=== PATIENT | male | born 1945 | race American Indian/Alaskan Native ===

== ENCOUNTER 2016-04-03 16:21 | Emergency (ER) | payer MEDICARE, MEDICAID ==
[2016-04-03 17:15] VITALS: BP 126/78
--- NOTE | 2016-04-03 17:20 | Emergency Department Report ---
Chief Complaint: Abdominal Pain Stated Complaint: STOMACH PAINS Time Seen by Provider: 04/03/16 17:19 - HPI History of Present Illness: 70 y/o male complain of abdominal since this am.pt state he vomit x 1 today - ROS Review of Systems: per HPI - Exam Vital Signs: Vital Signs 04/03/16 17:10 Temperature 97.7 F Pulse Rate 77 Respiratory 20 Rate Blood Pressure 126/78 O2 Sat by Pulse 97 Oximetry Physical Exam: GENERAL: The patient is well-developed and well-nourished. Patient is in NAD. HENT: Normocephalic. Atraumatic. Patient has moist mucous membranes. Throat: No erythema, swelling or exudates. EYES: Extraocular motions are intact, PERRL NECK: Supple. No meningitic signs are noted. There is no adenopathy noted. CHEST/LUNGS: Clear to auscultation bilaterally. No wheezing, rales or rhonchi noted. There is no respiratory distress noted. HEART/CARDIOVASCULAR: Regular rate and rhythm. Normal S1 S2. No murmurs, rubs , clicks, or gallops. ABDOMEN: Abdomen is soft, nontender.. Bowel sounds normoactive. There is no abdominal distention. Negative rebound tenderness. : Deferred. SKIN: There is no rash. There is no edema. There is no diaphoresis. NEURO: The patient is A&Ox3. The patient has no focal neurologic deficits. MUSCULOSKELETAL: There is no tenderness or deformity. There is no limitation range of motion. PSYCH: Pt has appropriate mood and affect. MSE screening note: Focused history and physical exam performed. Due to findings the following was ordered: ED Disposition for MSE Condition: Stable
[2016-04-03 17:38] LABS: Basophils % (Auto) 0.5 % (0.0-1.8); Eosinophils % (Auto) 0.5 % (0.0-4.3); Hematocrit 44.4 % (35.5-45.6); Mean Corpuscular HGB Conc 34 % (32-34); Mean Corpuscular Hemoglobin 31 pg (28-32); Mean Corpuscular Volume 93 fl (84-94); Platelet Count 192 K/mm3 (140-440); Red Cell Distribution Width 14.9 % (13.2-15.2); White Blood Count 6.6 K/mm3 (4.5-11.0)
[2016-04-03 17:58] LABS: BUN/Creatinine Ratio 14.28; Blood Urea Nitrogen 10 mg/dL (9-20); Calcium 9.6 mg/dL (8.4-10.2); Carbon Dioxide 19 mmol/L (22-30); Chloride 99.5 mmol/L (98-107); Glucose 119 mg/dL (75-100); Potassium 3.8 mmol/L (3.6-5.0); Sodium 135 mmol/L (137-145)
[2016-04-03 18:05] LABS: Anion Gap 20 mmol/L
[2016-04-03 18:14] LABS: Bilirubin,Urine NEG (Negative); Blood,Urine NEG (Negative); Ketones,Urine NEG (Negative); Leukocyte Esterase,Urine NEG (Negative); Mucus,Urine FEW /HPF; Nitrite,Urine NEG (Negative); Protein,Urine <15 mg/dL mg/dL (Negative); RBC,Urine < 1.0 /HPF (0.0-6.0); Urobilinogen,Urine < 2.0 mg/dL (<2.0)
--- NOTE | 2016-04-04 02:34 | Emergency Department Report ---
HPI - General Chief Complaint: Abdominal Pain Time Seen by Provider: 04/04/16 02:19 - HPI HPI: Room 3 The patient is a 70-year-old male presenting with chief complaint of abdominal pain. The patient states he was awakened this morning at 06:30 with suprapubic abdominal pain. Patient states the pain was constant and "hard." The patient states his daughter gave him an oxycodone at 20:00 and the pain is decreased from a 10/10 to currently a 2/10. The patient admits to one episode of nausea and vomiting and a small amount of diarrhea. Patient denies fever or hematuria. The patient states he has had intermittent dysuria for 1 month but has not sought evaluation Location: Suprapubic region Duration: Constant since 06:30 Quality: "Hard" Severity: 2/10 Modifying factors: [see above] Context: [see above] Mode of transportation: [not driving] ED Past Medical Hx - Past Medical History Hx Hypertension: Yes Additional medical history: leg pain, pacemaker, blind right eye "prostate problems" - Surgical History Hx Pacemaker: Yes Additional Surgical History: pacemaker, LLL surgery with pins - Family History Family history: no significant - Social History Smoking Status: Current Every Day Smoker (1/2 pack per day) Substance Use Type: Alcohol (stopped drinking alcohol 1 month ago) - Medications Home Medications: Home Medications Medication Instructions Recorded Confirmed Last Taken Type Aspirin [Aspirin BABY CHEW TAB] 81 mg PO QDAY 06/05/14 06/05/14 06/05/14 History Dorzolamide HCl/Timolol Maleat BID 06/05/14 06/05/14 06/05/14 History [Dorzolamide-Timolol Eye Drops] Folic Acid [Folvite] 1 mg PO QDAY 06/05/14 06/05/14 Unknown History Latanoprost 0.005% [Xalatan 0.005%] 06/05/14 06/05/14 Unknown History Tamsulosin [Flomax] 0.4 mg PO DAILY 06/05/14 06/05/14 06/04/14 History Thiamine [Vitamin B-1] 100 mg PO QDAY 06/05/14 06/05/14 Unknown History tiZANidine [Zanaflex] 4 mg pe PO PRN 06/05/14 06/05/14 Unknown History HYDROcodone/APAP 5-325 [[place] 1 each PO Q6HR PRN #20 tablet 06/06/14 Unknown Rx 5/325] Ibuprofen [Motrin 800 MG tab] 800 mg PO Q8H PRN #30 tablet 06/06/14 Unknown Rx HYDROcodone/APAP 5-325 [[place] 1 - 2 each PO Q6HR PRN #14 tablet 04/04/16 Unknown Rx 5/325] Ibuprofen [Motrin 800 MG tab] 800 mg PO Q8HR PRN #20 tablet 04/04/16 Unknown Rx Sulfamethoxazole/Trimethoprim 1 each PO BID #14 tablet 04/04/16 Unknown Rx [Bactrim DS TAB] ED Review of Systems ROS: Stated complaint: STOMACH PAINS Other details as noted in HPI Comment: All other systems reviewed and negative Constitutional: denies: chills, fever Eyes: denies: eye pain, eye discharge, vision change ENT: denies: ear pain, throat pain Respiratory: denies: cough, shortness of breath, wheezing Cardiovascular: denies: chest pain, palpitations Endocrine: no symptoms reported Gastrointestinal: abdominal pain, nausea, vomiting, diarrhea Genitourinary: dysuria. denies: hematuria Musculoskeletal: denies: back pain, joint swelling, arthralgia Skin: denies: rash, lesions Neurological: denies: headache, weakness, paresthesias Psychiatric: denies: anxiety, depression Hematological/Lymphatic: denies: easy bleeding, easy bruising Physical Exam - Physical Exam Vital Signs: Vital Signs 04/03/16 04/04/16 17:10 01:46 Temperature 97.7 F Pulse Rate 77 Respiratory 20 18 Rate Blood Pressure 126/78 O2 Sat by Pulse 97 99 Oximetry Physical Exam: GENERAL: The patient is well-developed well-nourished male lying on stretcher not appearing to be in acute distress. [] HEENT: Normocephalic. Atraumatic. Extraocular motions are intact. Patient has moist mucous membranes. NECK: Supple. Trachea midline CHEST/LUNGS: Clear to auscultation. There is no respiratory distress noted. HEART/CARDIOVASCULAR: Regular. There is no tachycardia. There is no gallop rub or murmur. ABDOMEN: Abdomen is soft, with tenderness to palpation of the suprapubic region . patient has normal bowel sounds. There is no abdominal distention. SKIN: There is no rash. There is no edema. There is no diaphoresis. NEURO: The patient is awake, alert, and oriented. The patient is cooperative. The patient has normal speech MUSCULOSKELETAL: There is no evidence of acute injury. ED Course Vital Signs 04/03/16 04/04/16 17:10 01:46 Temperature 97.7 F Pulse Rate 77 Respiratory 20 18 Rate Blood Pressure 126/78 O2 Sat by Pulse 97 99 Oximetry ED Medical Decision Making - Lab Data Result diagrams: 04/03/16 17:26 04/03/16 17:26 Laboratory Tests 04/03/16 04/03/16 04/03/16 17:26 17:26 18:00 WBC 6.6 RBC 4.80 Hgb 15.0 Hct 44.4 MCV 93 MCH 31 MCHC 34 RDW 14.9 Plt Count 192 Lymph % (Auto) 38.1 H Sullivan % (Auto) 6.3 Eos % (Auto) 0.5 Baso % (Auto) 0.5 Lymph # 2.5 Sullivan # 0.4 Eos # 0.0 Baso # 0.0 Seg Neutrophils % 54.6 Seg Neutrophils # 3.6 Sodium 135 L Potassium 3.8 Chloride 99.5 Carbon Dioxide 19 L Anion Gap 20 BUN 10 Creatinine 0.7 L Estimated GFR > 60 BUN/Creatinine Ratio 14.28 Glucose 119 H Calcium 9.6 Urine Color Yellow Urine Turbidity Clear Urine pH 6.0 Ur Specific [place] 1.019 Urine Protein <15 mg/dl Urine Glucose (UA) Neg Urine Ketones Neg Urine Blood Neg Urine Nitrite Neg Urine Bilirubin Neg Urine Urobilinogen < 2.0 Ur Leukocyte Esterase Neg Urine WBC (Auto) 1.0 Urine RBC (Auto) < 1.0 U Epithel Cells (Auto) < 1.0 Urine Mucus Few - Radiology Data Radiology results: report reviewed (CT abdomen and pelvis), image reviewed (CT abdomen and pelvis) CT abdomen and pelvis (read by radiologist)-there is no evidence of intestinal or urinary tract obstruction. No ileus or enteritis. There is significant prominence of the prostate gland with some calcifications within the prostate gland. There is also thickening of the urinary bladder wall cholecystitis is suspected. - Differential Diagnosis UTI, diverticulitis, bladder mass, renal colic Critical care attestation.: If time is entered above; I have spent that time in minutes in the direct care of this critically ill patient, excluding procedure time. ED Disposition Clinical Impression: Acute abdominal pain, Dysuria Disposition: DISCHARGED TO HOME OR SELFCARE Is pt being admited?: No Does the pt Need Aspirin: No Condition: Stable Instructions: Prostate Cancer (GEN), Prostatitis (ED) Additional Instructions: Return to the emergency department immediately should you develop worsening symptoms, fever, inability to tolerate food or liquid or any other concerns. Prescriptions: HYDROcodone/APAP 5-325 [[place] 5/325] 1 - 2 each PO Q6HR PRN #14 tablet PRN Reason: Pain Ibuprofen [Motrin 800 MG tab] 800 mg PO Q8HR PRN #20 tablet PRN Reason: Pain Sulfamethoxazole/Trimethoprim [Bactrim DS TAB] 1 each PO BID #14 tablet Referrals: PRIMARY CAREMD [Primary Care Provider] - 3-5 Days KARRIE BYNUM MD [Staff Physician] - 3-5 Days (Dr. Bynum is a urologist. It is very important that you follow up with him for further evaluation) Time of Disposition: 04:11
[2016-04-04] MEDS ORDERED: NACL ONE (02:47)
--- NOTE | 2016-04-04 03:56 | Cat Scan Report ---
FINAL REPORT PROCEDURE: CT ABDOMEN PELVIS W CON TECHNIQUE: Computerized axial tomography of the abdomen and pelvis was performed after the IV injection of iodinated nonionic contrast. HISTORY: lower abdominal, suprapubic pain COMPARISON: No prior studies are available for comparison. FINDINGS: Visualized lower thorax: No significant abnormality. Liver: The liver size is normal. There are multiple areas hypoattenuation identified in the liver the appear to represent cysts. The largest measures 2.5 centimeters.. Spleen: Normal size and attenuation. Gallbladder and biliary system: The gallbladder lumen is normal. No stones are identified. Minimal prominence of the central biliary ductal system is identified on this study. Further evaluation with ultrasound and HIDA scan may be appropriate.. Pancreas: Normal. Adrenals: Normal. Kidneys: Both kidneys have a normal size. No hydronephrosis. No renal stones or masses. GI tract: The stomach is normal. The small bowel has a normal caliber. No obstruction, ileus or enteritis. The cecum, appendix and colon are normal. Lymph nodes and mesentery: Normal. Vasculature: Moderate atherosclerosis of the aorta and all branching vessels. There is an inferior vena cava filter identified.. Bladder: There is some bladder wall thickening. Cystitis is possible.. Reproductive organs: The prostate gland is enlarged. There are some calcifications within the prostate gland. Peritoneum: No free fluid. Musculoskeletal structures: No significant abnormality. Other: None. IMPRESSION: There is no evidence of intestinal or urinary tract obstruction. No ileus or enteritis. There is slight dilatation of the central biliary ductal system. The gallbladder lumen shows no evidence of stone formation. Further evaluation of the biliary system with ultrasound and HIDA scan may be appropriate. There is significant prominence of the prostate gland with some calcifications within the prostate gland. There is also thickening of the urinary bladder wall, cystitis is suspected.
== END 2016-04-04 04:29 | disposition home or self-care (01) ==
LOC: ED 16:21
DX: R10.30 Lower abdominal pain, unspecified (principal); R30.0 Dysuria; I10 Essential (primary) hypertension; F17.200 Nicotine dependence, unspecified, uncomplicated
CPT/HCPCS: 36415; 74177; 80048; 81001; 85025; 87086; 99284; Q9967

== ENCOUNTER 2016-04-17 22:56 | Emergency (ER) | payer MEDICARE ==
--- NOTE | 2016-04-17 23:25 | Emergency Department Report ---
- General Chief complaint: Weakness Stated complaint: CHEST PAIN Time Seen by Provider: 04/17/16 23:17 Source: patient, EMS Mode of arrival: Stretcher Limitations: Physical Limitation - History of Present Illness Initial comments: This 70-year-old male with history of hypertension, hyperlipidemia with permanent pacemaker in place presented today because of generalized weakness. He has been having these symptoms for the past 3 days. He also has chronic back pain which she states has been acting up the last 3 days as well. He denies any numbness lower extremities complains of weakness in both lower legs. No saddle anesthesia or urinary/rectal incontinence. He is not a very reliable historian. No episodes of syncope, near-syncope, chest pain, shortness of breath, leg pain, leg swelling. Severity scale (0 -10): 7 - Related Data Home Medications Medication Instructions Recorded Confirmed Last Taken RX: Aspirin [Aspirin BABY CHEW TAB] 81 mg PO QDAY 06/05/14 06/05/14 06/05/14 RX: Dorzolamide HCl/Timolol Maleat BID 06/05/14 06/05/14 06/05/14 [Dorzolamide-Timolol Eye Drops] RX: Folic Acid [Folvite] 1 mg PO QDAY 06/05/14 06/05/14 Unknown RX: Latanoprost 0.005% [Xalatan 06/05/14 06/05/14 Unknown 0.005%] RX: Tamsulosin [Flomax] 0.4 mg PO DAILY 06/05/14 06/05/14 06/04/14 RX: Thiamine [Vitamin B-1] 100 mg PO QDAY 06/05/14 06/05/14 Unknown RX: tiZANidine [Zanaflex] 4 mg pe PO PRN 06/05/14 06/05/14 Unknown Previous Rx's Medication Instructions Recorded Last Taken Type RX: HYDROcodone/APAP 5-325 [[place] 1 each PO Q6HR PRN #20 tablet 06/06/14 Unknown Rx 5-325 mg TAB] RX: Ibuprofen [Motrin 800 MG tab] 800 mg PO Q8H PRN #30 tablet 06/06/14 Unknown Rx RX: HYDROcodone/APAP 5-325 [[place] 1 - 2 each PO Q6HR PRN #14 tablet 04/04/16 Unknown Rx 5-325 mg TAB] RX: Ibuprofen [Motrin 800 MG tab] 800 mg PO Q8HR PRN #20 tablet 04/04/16 Unknown Rx RX: Sulfamethoxazole/Trimethoprim 1 each PO BID #14 tablet 04/04/16 Unknown Rx [Bactrim DS TAB] Allergies Allergy/AdvReac Type Severity Reaction Status Date / Time No Known Allergies Allergy Unverified 06/05/14 17:52 ED Review of Systems ROS: Stated complaint: CHEST PAIN Other details as noted in HPI Comment: All other systems reviewed and negative Constitutional: denies: chills, fever Respiratory: denies: cough, shortness of breath Cardiovascular: denies: chest pain, palpitations Gastrointestinal: denies: abdominal pain, vomiting Musculoskeletal: back pain Psychiatric: denies: anxiety ED Past Medical Hx - Past Medical History Previous Medical History?: Yes Hx Hypertension: Yes Additional medical history: leg pain, pacemaker, blind right eye "prostate problems" - Surgical History Past Surgical History?: Yes Hx Pacemaker: Yes Additional Surgical History: pacemaker, LLL surgery with pins - Social History Smoking Status: Current Every Day Smoker Substance Use Type: Alcohol, Prescribed - Medications Home Medications: Home Medications Medication Instructions Recorded Confirmed Last Taken Type RX: Aspirin [Aspirin BABY CHEW TAB] 81 mg PO QDAY 06/05/14 06/05/14 06/05/14 History RX: Dorzolamide HCl/Timolol Maleat BID 06/05/14 06/05/14 06/05/14 History [Dorzolamide-Timolol Eye Drops] RX: Folic Acid [Folvite] 1 mg PO QDAY 06/05/14 06/05/14 Unknown History RX: Latanoprost 0.005% [Xalatan 06/05/14 06/05/14 Unknown History 0.005%] RX: Tamsulosin [Flomax] 0.4 mg PO DAILY 06/05/14 06/05/14 06/04/14 History RX: Thiamine [Vitamin B-1] 100 mg PO QDAY 06/05/14 06/05/14 Unknown History RX: tiZANidine [Zanaflex] 4 mg pe PO PRN 06/05/14 06/05/14 Unknown History RX: HYDROcodone/APAP 5-325 [[place] 1 each PO Q6HR PRN #20 tablet 06/06/14 Unknown Rx 5-325 mg TAB] RX: Ibuprofen [Motrin 800 MG tab] 800 mg PO Q8H PRN #30 tablet 06/06/14 Unknown Rx RX: HYDROcodone/APAP 5-325 [[place] 1 - 2 each PO Q6HR PRN #14 tablet 04/04/16 Unknown Rx 5-325 mg TAB] RX: Ibuprofen [Motrin 800 MG tab] 800 mg PO Q8HR PRN #20 tablet 04/04/16 Unknown Rx RX: Sulfamethoxazole/Trimethoprim 1 each PO BID #14 tablet 04/04/16 Unknown Rx [Bactrim DS TAB] ED Physical Exam - General Limitations: No Limitations General appearance: alert, in no apparent distress - Head Head exam: Present: atraumatic - ENT ENT exam: Present: normal exam - Neck Neck exam: Present: normal inspection - Respiratory Respiratory exam: Present: normal lung sounds bilaterally, respiratory distress. Absent: chest wall tenderness - Cardiovascular Cardiovascular Exam: Present: regular rate, normal rhythm, normal heart sounds - GI/Abdominal GI/Abdominal exam: Present: soft. Absent: distended, tenderness - Extremities Exam Extremities exam: Present: normal inspection - Back Exam Back exam: Present: paraspinal tenderness, other (bilateral thoracic paraspinal tenderness, no midline tenderness) - Neurological Exam Neurological exam: Present: alert, other (5 out of 5 strength in proximal and distal bilateral lower extremities, sensation intact bilateral lower extremities , normal sensation in groin area bilaterally). Absent: motor sensory deficit - Psychiatric Psychiatric exam: Present: normal affect - Skin Skin exam: Present: intact ED Course Vital Signs 04/17/16 04/17/16 04/17/16 22:57 23:00 23:07 Temperature 97.9 F Pulse Rate 94 H 94 H Respiratory 13 18 Rate Blood Pressure 146/82 122/88 146/78 Blood Pressure 146/78 [Left] O2 Sat by Pulse 98 Oximetry 04/17/16 04/17/16 04/17/16 23:29 23:31 23:39 Temperature Pulse Rate 94 H Respiratory 16 18 Rate Blood Pressure Blood Pressure [Left] O2 Sat by Pulse 97 Oximetry - Reevaluation(s) Reevaluation #1: 04/18/16 01:29 Pain has improved, no dizziness while in the ER. Will discharge home with primary care follow-up. ED Medical Decision Making - Lab Data Result diagrams: 04/17/16 23:22 01/14/17 23:22 - Medical Decision Making Motrin and Valium for back pain, basic labs EKG shows paced rhythm at 96 bpm, no scarbosa criteria met Patient's back pain appears to be paraspinal and without any signs of cord compression labs unremarkable ua negative Critical care attestation.: If time is entered above; I have spent that time in minutes in the direct care of this critically ill patient, excluding procedure time. ED Disposition Clinical Impression: Back pain Qualifiers: Back pain location: thoracic back pain Chronicity: chronic Back pain laterality : bilateral Qualified Code(s): M54.6 - Pain in thoracic spine Disposition: DISCHARGED TO HOME OR SELFCARE Is pt being admited?: No Does the pt Need Aspirin: No Condition: Stable Instructions: Fatigue (ED), Chronic Back Pain (ED) Additional Instructions: Please follow up with your primary care doctor in the next 3-5 days. Please return to the emergency department immediately if you notice any numbness in your legs or groin, weakness is worsening in the legs, incontinence (loss of control of her bowel and bladder), inability to walk. Referrals: PRIMARY CARE, [Primary Care Provider] - 3-5 Days
[2016-04-17] MEDS ORDERED: VALIUM PO ONE (23:28)
[2016-04-17] MEDS ORDERED: MOTRIN PO ONE (23:28)
[2016-04-17] MEDS ORDERED: NACL 0.9% 1000 ML 1,000 ML IV ONE (23:34)
[2016-04-17 23:51] LABS: Basophils % (Auto) 0.7 % (0.0-1.8); Eosinophils % (Auto) 1.6 % (0.0-4.3); Hematocrit 40.1 % (35.5-45.6); Hemoglobin 13.8 gm/dl (11.8-15.2); Mean Corpuscular HGB Conc 34 % (32-34); Mean Corpuscular Hemoglobin 31 pg (28-32); Mean Corpuscular Volume 91 fl (84-94); Platelet Count 236 K/mm3 (140-440); Red Blood Count 4.41 M/mm3 (3.65-5.03); Red Cell Distribution Width 14.6 % (13.2-15.2); White Blood Count 6.5 K/mm3 (4.5-11.0)
[2016-04-17 23:55] LABS: Blood Urea Nitrogen 11 mg/dL (9-20); Calcium 9.5 mg/dL (8.4-10.2); Carbon Dioxide 22 mmol/L (22-30); Chloride 103.6 mmol/L (98-107); Glucose 107 mg/dL (75-100); Potassium 3.9 mmol/L (3.6-5.0); Sodium 139 mmol/L (137-145)
[2016-04-17 23:58] LABS: Anion Gap 17 mmol/L
[2016-04-18 01:46] LABS: Bilirubin,Urine NEG (Negative); Blood,Urine NEG (Negative); Ketones,Urine NEG (Negative); Leukocyte Esterase,Urine NEG (Negative); Mucus,Urine FEW /HPF; Nitrite,Urine NEG (Negative); Protein,Urine <15 mg/dL mg/dL (Negative); Urobilinogen,Urine < 2.0 mg/dL (<2.0); WBC,Urine < 1.0 /HPF (0.0-6.0)
[2016-04-18 02:25] VITALS: BP 101/67
--- NOTE | 2016-04-18 09:54 | XRay Report ---
AP CHEST History: Chest pain, back pain. Findings: No significant change since 06/06/14. Moderate emphysematous changes are suspected in the lungs are clear. Normal heart size and pulmonary vascularity. A 3-lead pacemaker device is unchanged in position. The thoracic cage is grossly intact. Impression: Emphysematous changes. No acute process appreciated.
== END 2016-04-18 06:59 | disposition home or self-care (01) ==
LOC: ED 22:56
DX: M54.6 Pain in thoracic spine (principal); G89.29 Other chronic pain; I10 Essential (primary) hypertension; E78.5 Hyperlipidemia, unspecified; F17.200 Nicotine dependence, unspecified, uncomplicated; Z79.82 Long term (current) use of aspirin
CPT/HCPCS: 36415; 71010; 80048; 81001; 84484; 85025; 93005; 93010; 96360; 99284; J7030